=== PATIENT | male | born 1955 | race African-American/Black ===

== ENCOUNTER 2016-12-22 02:50 | Emergency (ER) | payer SELFPAY ==
[2016-12-22] MEDS ORDERED: Metoprolol Tartrate 5 MG/5 ML VIAL ONE (03:12)
[2016-12-22] MEDS ORDERED: Nitroglycerin 0.4 MG TAB (25 Tab Bottle) ONE (03:12)
[2016-12-22] MEDS ORDERED: Ondansetron HCl/PF 4 MG/2 ML Vial ONE (03:12)
[2016-12-22 03:24] LABS: Hemoglobin 10.2 g/dL (14.0-18.0); Mean Corpuscular HGB CONC 35.4 g/dL (32.0-36.0); Mean Corpuscular Hemoglobin 36.4 pg (27.0-31.0); Mean Platelet Volume 5.2 fL (7.4-10.4); Platelet Count 145 thou/uL (130-400); RBC Distribution Width 14.2 % (11.5-14.5); White Blood Cell (WBC) Count 10.8 thou/uL (4.8-10.8)
[2016-12-22] MEDS ORDERED: Thiamine HCl 200 MG/2 ML VIAL ONE (03:27)
[2016-12-22 03:29] LABS: ALT (SGPT) 40 U/L (8-55); AST (SGOT) 71 U/L (5-34); Albumin 4.4 g/dL (3.5-5.0); Alcohol 153 mg/dL (Less than 10); Alkaline Phosphatase 90 U/L (40-150); Anion Gap 18 mmol/L (10-20); BUN (Urea Nitrogen) 14 mg/dL (8.4-25.7); Bilirubin, Total 1.9 mg/dL (0.2-1.2); Calc. Creatinine Clearance 0 mL/min (70-130); Calcium 9.7 mg/dL (7.8-10.44); Carbon Dioxide 22 mmol/L (22-29); Chloride 100 mmol/L (98-107); Estimated GFR-MDRD 29; Globulin 3.9 g/dL (2.4-3.5); Glucose 103 mg/dL (70-105); Protein, Total 8.3 g/dL (6.0-8.3); Sodium 137 mmol/L (136-145)
[2016-12-22 03:33] LABS: CKMB 1.8 ng/mL (0-6.6); Troponin I 0.016 ng/mL (< 0.028)
[2016-12-22 03:37] LABS: Potassium 2.6 mmol/L (3.5-5.1)
[2016-12-22 03:43] LABS: #Basophils 0.1 thou/uL (0.0-0.2); #Eosinphils 0.1 thou/uL (0.0-0.7); #Lymphocytes 0.8 thou/uL (1.20-3.40); #Monocytes 0.9 thou/uL (0.11-0.59); %Basophils 0.5 % (0.0-1.0); %Eosinophils 0.8 % (0.0-10.0); %Lymphocytes 7.5 % (21.0-51.0); %Monocytes 8.1 % (0.0-10.0); %Neutrophils 83.1 % (42.0-75.0); MDiff Complete? YES; Macrocytosis SLIGHT = 6-15 cells (100X) (0-5/hpf); PLT Morphology Comment Appears Adequate
[2016-12-22] MEDS ORDERED: Potassium Chloride 20 MEQ/100 ML PREMIX BAG ONE (03:46)
[2016-12-22] MEDS ORDERED: Fentanyl 100 MCG/2 ML VIAL ONE (03:56)
[2016-12-22] MEDS ORDERED: Famotidine In NaCl 20 mg/50 ml Premix Bag ONE (03:56)
[2016-12-22 04:14] LABS: Lipase 7860 U/L (8-78)
--- NOTE | 2016-12-22 08:19 | RAD ---
UPRIGHT PORTABLE CHEST ONE VIEW: History: Chest pain. Pain radiating to the left side of the chest. FINDINGS: There are old granuloma calcification changes. There are linear and parenchymal changes in both uppe r lung zones with some minimal associated volume loss probably related to some scarring. Heart size is normal. No new confluent pneumonia, overt edema, or pleural effusion. IMPRESSION: Old granulomatous disease. Bilateral upper lung linear scarring and mild volume loss. POS: [facility]
== END 2016-12-22 04:40 | disposition short-term general hospital (02) ==
LOC: BURERS 02:50
DX: K85.90 Acute pancreatitis without necrosis or infection, unspecified (principal); F10.129 Alcohol abuse with intoxication, unspecified; D64.9 Anemia, unspecified; I12.9 Hypertensive chronic kidney disease with stage 1 through stage 4 chronic kidney disease, or unspecified chronic kidney disease; N18.9 Chronic kidney disease, unspecified; F41.9 Anxiety disorder, unspecified; F32.9 Major depressive disorder, single episode, unspecified; Y90.6 Blood alcohol level of 120-199 mg/100 ml; Z79.899 Other long term (current) drug therapy
CPT/HCPCS: 71010; 80053; 80307; 82553; 83690; 84484; 85025; 93005; 94760; 96365; 96375; J2405; J3010; J3411; J3480

== ENCOUNTER 2021-07-21 16:33 | Emergency (ER) | payer MEDICARE, SELFPAY ==
[2021-07-21] MEDS ORDERED: Dexamethasone 10 MG/ML VIAL ONE (16:58)
== END 2021-07-21 17:08 | disposition home or self-care (01) ==
LOC: BURERS 16:33
DX: R21 Rash and other nonspecific skin eruption (principal); I12.9 Hypertensive chronic kidney disease with stage 1 through stage 4 chronic kidney disease, or unspecified chronic kidney disease; N18.9 Chronic kidney disease, unspecified
CPT/HCPCS: 96372; 99282; J1100

== ENCOUNTER 2022-01-23 22:20 | Emergency (ER) | payer MEDICARE ==
[2022-01-23] MEDS ORDERED: HYDROcodone/Acetaminophen 5/325 mg Tablet ONE (22:58)
[2022-01-23] MEDS ORDERED: Ketorolac Tromethamine 30 MG/ML VIAL ONE (22:59)
== END 2022-01-23 23:05 | disposition home or self-care (01) ==
LOC: BURERS 22:20
DX: S13.4XXA Sprain of ligaments of cervical spine, initial encounter (principal); E78.5 Hyperlipidemia, unspecified; E78.1 Pure hyperglyceridemia; I12.9 Hypertensive chronic kidney disease with stage 1 through stage 4 chronic kidney disease, or unspecified chronic kidney disease; N18.9 Chronic kidney disease, unspecified; X50.9XXA Other and unspecified overexertion or strenuous movements or postures, initial encounter
CPT/HCPCS: 72040; 96372; J1885

== ENCOUNTER 2025-07-03 10:47 | Emergency (ER) | payer MEDICARE | END 2025-07-03 12:25 | disposition home or self-care (01) | LOC: BURERS 10:47 | DX: N52.9 Male erectile dysfunction, unspecified (principal); I12.9 Hypertensive chronic kidney disease with stage 1 through stage 4 chronic kidney disease, or unspecified chronic kidney disease; N18.9 Chronic kidney disease, unspecified; Z79.899 Other long term (current) drug therapy | CPT/HCPCS: 99283 ==